=== PATIENT | male | born 1970 | race African-American/Black ===

== ENCOUNTER 2019-08-16 06:22 | Emergency (ER) | payer OTHER ==
[~2019-08-16] VITALS: Ht 170.2 cm; Wt 68.0 kg
--- NOTE | ~2019-08-16 | EMS ---
[facility] [address] [place] [address] EMS Patient Care Report Name: MIRANDA SANTOS Room #: DEP ANNE MARIE Disla#: [id number] Admission: 08/16/19 Attend Phys: Discharge: 08/16/19 Date of : 74 Report #: [id number] THIS REPORT FOR: //name// Report Transmitted: 08/17/2019 08:02 EMS Care Summary [place], [place]/[facility] Incident [id number] @ 08/16/2019 05:57 Incident Location [address] Patient MIRANDA A DANIELLE Male, 48 Years 1970 Patient Address [address] [place] [address] Patient History Stroke/CVA,Substance Abuse,Depression,Anxiety, Patient Allergies No known allergies, Patient Medications Seroquel, Chief Complaint RLQ ABD PAIN Disposition Transported No Lights/[place] Reason Abdominal Pain/Problems Transported To [place] Narrative PT FOUND STANDING AT [facility]. PT C/O RLQ ABD PAIN FOR 3 DAYS. PT STATES PAIN KEEPS GETTING WORSE. PT DENIES COVID SYMPTOMS. PT GIVEN SURGICAL MASK TO [facility] FOR TRASNPORT. TRANSPORTED WITHOUT INCIDENT. Initial Vitals [facility] [address] [place] [address] EMS Patient Care Report Name: MIRANDA SANTOS Room #: DEP ER Naif#: [id number] Admission: 08/16/19 Attend Phys: Discharge: 08/16/19 Date of : 74 Report #: [id number] @06:16P: 118,R: 18,BP: 150/76,Pain: 8/10,GCS: 15,CO: 6,SpO2: 99,Revised Trauma: 12, Assessments @06:04MENTAL:No Abnormalities,SKIN:No Abnormalities,HEENT:Head/Face: No Abnormalities,Eyes: No Abnormalities,Neck/Airway: No Abnormalities,LUNG SOUNDS:ABDOMEN:PELVIS//GI:EXTREMITIES:PULSE:NEURO:No Abnormalities, Impression Abdominal Pain Procedures @06:04ALS AssessmentResponse: UnchangedSucceeded Timeline 05:55,Call Received 05:55,Dispatch Notified 05:57,Dispatched 05:59,En Route 06:03,On Scene 06:04,At Patient 06:04,ALS Assessment,Response: UnchangedSucceeded, 06:08,Depart Scene 06:14,At Destination 06:16,BP: 150/76 M,PULSE: 118,RR: 18 R,SPO2: 99 Ox,ETCO2: ,BG: ,PAIN: 8,GCS: 15, 06:39,Call Closed Disclaimer [email or web address] Copyright 2020 [employer] This EMS Care Summary contains data elements from the applicable legal record (which may be displayed differently). It is designed to provide pertinent information for the following purposes: continuity of care, clinical quality, and state data reporting. The complete legal record is available to ED staff and administrators of the receiving hospital in [employer] Patient Tracker. All data is provided "as is."
[2019-08-16 06:47] LABS: ABSOLUTE NEUTROPHILS 3.1 thou/uL (1.4-8.2); BASOPHILS 1.1 % (0.0-2.0); EOSINOPHILS 0.1 % (0.0-3.0); HEMATOCRIT 41.1 % (42.0-52.0); LYMPHOCYTES 21.9 % (24.0-44.0); MCH 30.7 pg (26.0-34.0); MCV 90.5 fL (80.0-100.0); MONOCYTES 9.8 % (1.0-8.0); PLATELET COUNT 294 thou/uL (150-400); POLYS 67.1 % (36.0-66.0); RBC 4.54 mil/uL (4.50-6.00); RDW 13.4 % (10.5-14.5); WBC 4.6 thou/uL (4.0-11.0)
[2019-08-16 07:01] LABS: URINE BILIRUBIN NEGATIVE (Negative); URINE BLOOD TRACE (Negative); URINE CLARITY CLEAR; URINE COLOR YELLOW; URINE GLUCOSE-RANDOM* NEGATIVE (Negative); URINE KETONES TRACE (Negative); URINE LEUKOCYTES-REFLEX NEGATIVE (Negative); URINE NITRITE-REFLEX NEGATIVE (Negative); URINE PROTEIN (DIPSTICK) TRACE (Negative); URINE SPECIFIC GRAVITY >= 1.030 (1.005-1.035); URINE UROBILINOGEN 0.2 E.U./dl (0.2-1.0)
[2019-08-16 07:03] LABS: ANION GAP 12 mmol/L (7-16); BUN 17 mg/dL (7-18); CALCIUM 8.6 mg/dL (8.5-10.1); CHLORIDE 104 mmol/L (98-107); CO2 24 mmol/L (21-32); CREATININE 1.3 mg/dL (0.7-1.3); GLUCOSE 89 mg/dL (74-106); POTASSIUM 3.7 mmol/L (3.5-5.1); SODIUM 140 mmol/L (136-145)
[2019-08-16 07:08] LABS: ALBUMIN 4.1 g/dL (3.4-5.0); LIPASE 103 U/L (73-393); SGOT 46 U/L (15-37); SGPT 28 U/L (30-65); TOTAL BILIRUBIN 1.4 mg/dL (<0.1-1.0); TOTAL PROTEIN 7.6 g/dL (6.4-8.2); TROPONIN-I <0.06 ng/mL (<0.06)
[2019-08-16] MEDS ORDERED: QUETIAPINE FUM100 MG PO (07:09)
--- NOTE | 2019-08-16 07:43 | EKG ---
[facility] [place] [address] ELECTROCARDIOGRAM REPORT Name: MIRANDA SANTOS Room #: REG [facility]#: [id number] Admission: 08/16/19 Attend Phys: Discharge: Date of : 74 Report #: [id number] THIS REPORT FOR: cc: CATE - Julia family physician/PCP CATE - Julia family physician/PCP Getachew Oakley MD ~ THIS REPORT FOR: //name// [facility] ED Test Date: 2019-08-16 Test Time: 06:40:10 Pat Name: MIRANDA SANTOS Department: Room: Gender: Nut Feeder: enrique : 1970 Requested By: Simone Kraus Order Number: [id number] MD: Getachew Oakley Measurements Intervals Theodore Rate: 104 P: 71 NE: 120 QRS: 51 QRSD: 68 T: 52 QT: 325 QTc: 428 Interpretive Statements Sinus tachycardia No previous ECG available for comparison Electronically Signed On 08-16-2019 7:41:36 CDT by Getachew Oakley [email or web address] <ELECTRONICALLY SIGNED> By: Getachew Oakley MD 08/16/19 0741 [id number] [id number] Getachew Oakley MD /LEYLA
[2019-08-16] MEDS ORDERED: BENTYL 20 MG TA20 M1 PO (09:31)
[2019-08-16 09:40] VITALS: BP 144/91
== END 2019-08-16 09:40 | disposition home or self-care (01) ==
LOC: ER 06:22
PROVIDERS: Emergency Medicine
DX: R10.32 Left lower quadrant pain (principal); F41.1 Generalized anxiety disorder; R30.0 Dysuria; R11.10 Vomiting, unspecified; R00.0 Tachycardia, unspecified; Z86.73 Personal history of transient ischemic attack (TIA), and cerebral infarction without residual deficits; Z79.899 Other long term (current) drug therapy